=== PATIENT | male | born 1990 | race African-American/Black ===

== ENCOUNTER 2019-07-10 18:24 | Emergency (ER) | payer OTHER ==
[~2019-07-10] VITALS: Ht 182.9 cm; Wt 74.8 kg
--- NOTE | 2019-07-10 19:02 | NUR ---
patient bib friend c/o right shoulder pain,(+) deformity consistent w/ dislocation was swimming in the pool. On room air, breathing evenly and unlabored. Connected to the monitor and pulse ox. kept comfortable, will continue to monitor accordingly.
[2019-07-10] MEDS ORDERED: HYDROMORPHONE 1 MG/1 ML DISP.SYRIN ONE (19:12)
--- NOTE | 2019-07-10 19:16 | NUR ---
x michel peterson at the bed side
--- NOTE | 2019-07-10 19:26 | NUR ---
report given to Melissa YANEZ for сергей.
[2019-07-10] MEDS ORDERED: HYDROMORPHONE INJ 0.5 MG/0.5 ML SYRINGE IV ONE (19:30)
[2019-07-10] MEDS ORDERED: IV NS 0.9% 1,000 ML IV ONE (19:30)
--- NOTE | 2019-07-10 19:57 | NUR ---
Note thania in EDM - 07/10/19 at 1958 by CORY asked pt about his home meds. pt does not remember the exact dosage of his med. called Mao, pt's son . He has noaccess to the meds list t this time. Mao: [phone]
[2019-07-10] MEDS ORDERED: PROPOFOL 20 ML IV ONE (20:00)
--- NOTE | 2019-07-10 20:19 | NUR ---
PROPOFOL [address] ESCAMILLA'S ORDER ON LAC 18G
--- NOTE | 2019-07-10 20:21 | NUR ---
PROPOFOL [address] ESCAMILLA'S ORDER ON LAC 18G
--- NOTE | 2019-07-10 20:27 | NUR ---
R SHOULDER REDUCTION DONEBY DR. MUNOZ THE BED SIDE UNDER MODERATE SEDATION. PT TOLERATED THE PROCEDURE AMD THE SEDATION WELL/ WILL CONT TO MONITOR ,.
--- NOTE | 2019-07-10 20:31 | NUR ---
pt remained under close monitoring w. rt at the bed side. pt awake and responsive. breathing evenly . no sob
--- NOTE | 2019-07-10 20:38 | NUR ---
pt awake and alert. satting 100% on r/a
--- NOTE | 2019-07-10 21:21 | NUR ---
pt ambulatory w/ no distress. medically clear for d/c. Patient discharged to home in stable condition. Written and verbal after care instructions given. Patient verbalizes understanding of instruction. shoulder sling on
[2019-07-10 22:47] VITALS: BP 93/130
== END 2019-07-10 21:21 | disposition home or self-care (01) ==
LOC: ER 18:26
DX: S43.084A Other dislocation of right shoulder joint, initial encounter (principal); Z98.890 Other specified postprocedural states; X50.9XXA Other and unspecified overexertion or strenuous movements or postures, initial encounter; Y93.11 Activity, swimming; Y92.89 Other specified places as the place of occurrence of the external cause; Y99.8 Other external cause status
CPT/HCPCS: 23650; 73030 ×2; 96374; 99285; J1170; J2704; J7030